=== PATIENT | female | born 1995 | race Caucasian/White ===

== ENCOUNTER 2020-07-11 14:58 | Emergency (ER) | payer OTHER ==
[2020-07-11] MEDS ORDERED: ACETAMINOPHEN 500 MG TAB PO ONE (15:04)
--- NOTE | 2020-07-11 15:07 | ED.PDOC ---
History of Present Illness - General Time Seen by Provider: 07/11/20 15:03 Source: patient - History of Present Illness Initial Comments: 24-year-old female who is brought in by law enforcement from senior living for chief complaint of left elbow pain following acute injury. She reports that she was running and she slipped and fell backwards and landed on the posterior aspect of the left elbow. Since then she reports sharp 10/10 severity pain which begins at the medial aspect of the posterior left elbow and radiates down the medial forearm, worsened with extension of the elbow and supination of the left forearm. She is unsure if there is any swelling or deformity. She has not been given any medicine for pain relief yet. Denies any weakness, numbness. No other acute injuries reported. Allergies/Adverse Reactions: Allergies Cefaclor [From [facility] [place]] Adverse Reaction (Verified 07/11/20 15:07) Home Medications: Ambulatory Orders NK 07/11/20 Review of Systems - Review of Systems Review of Systems: 07/11/20 15:06 as per HPI All other Systems: Reviewed and Negative Family Medical History - Family History Mother Family History: Unknown Physical Exam - Physical Exam General Appearance: Alert, Comfortable, No apparent distress Eyes, Ears, Nose, Throat Exam: PERRL/EOMI, normal ENT inspection Neck: full range of motion, normal inspection Cardiovascular/Respiratory: regular rate, rhythm, no M/R/G, normal peripheral pulses, no JVD, normal breath sounds, no respiratory distress Abdominal Exam: non-tender Back Exam: normal inspection Shoulder Exam: normal inspection Elbow/Forearm Exam: normal inspection - Left elbow appears normal on inspection without bruising/swelling/deformity. There is marked bony tenderness to palpation at the postero-medial aspect of the elbow. Wrist Exam: normal inspection, non-tender, no evidence of injury, normal ROM, limited ROM - Range of motion is markedly limited due to pain. Patient is holding the elbow slightly flexed Hand Exam: normal inspection, non-tender, no evidence of injury, normal ROM Neuro/Tendon: normal sensation, normal motor functions Mental Status: alert, oriented x 3 Skin Exam: normal color, warm/dry Progress - Progress Progress: 07/11/20 15:08 Left elbow pain -Consider left elbow fracture, left elbow dislocation, contusion, strain/sprain, other -X-ray imaging of the left elbow -Tylenol 1000 mg and cold compress to the left elbow for pain 07/11/20 16:59 -X-ray imaging of the left elbow reviewed by me and reveals comminuted fracture of the left radial neck -Consult orthopedic surgery, jay jay Guthrie who recommends sugar tong splint placement to the left upper extremity and follow-up outpatient with orthopedic surgery -Splint placed without issue. Discharged back to senior living in good condition, return warnings discussed. Advised to follow-up with orthopedic surgery in the next 3 to 5 days in the clinic Mark Steele MD Billing #[id number] Procedures - Splinting Left Arm Hand-Made Type: orthoglass Splint: sugar-tong Pre-Proc Neuro Vasc Exam: normal Post-Proc Neuro Vasc Exam: normal Departure - Departure Clinical Impression: Fracture of radial neck, left, closed Qualifiers: Encounter type: initial encounter Fracture alignment: displaced Qualified Code(s): S52.132A - Displaced fracture of neck of left radius, initial encounter for closed fracture Time of Disposition: 16:55 Disposition: Residential Condition: Good Instructions: Elbow Fracture (DC) Diet: resume usual diet Activity: other - no use or lifting with Left Upper extremity until cleared by ortho Referrals: ARLETH CM IV, NP [Active Staff] - 1-2 Weeks Abdoulaye Ford MD [Active Staff] - 1-5 Days Home Medications: Ambulatory Orders NK 07/11/20 Additional Instructions: The splint in place to the left arm until follow-up with orthopedic surgery. Avoid getting the splint wet which may cause it to lose its form and also cause irritation. Continue to take ibuprofen 600 mg every 6 hours as needed and Tylenol 650 mg every 6 hours as needed for pain and swelling. Return to the ED if you develop color change in the hand, weakness, numbness, or other concerning symptoms. Follow-up with orthopedic surgery in the next 3 to 5 days as directed. You will need to call the orthopedic surgery office tomorrow to arrange this appointment.
[2020-07-11 15:28] VITALS: TEMP 98.1
--- NOTE | 2020-07-11 15:46 | RAD ---
EXAM DESCRIPTION: Elbow,Left 3 Views CLINICAL HISTORY: fall, left elbow pain COMPARISON: None. IMPRESSION: 3 views of the left elbow show comminuted fracture involving the left radial head primarily involving the radial neck with mild extension to the lateral aspect of the radial head articular surface. Widening of the joint space is seen with lateral angulation of the proximal fracture fragment/radial head. Elevation of the anterior distal humerus fat pad is seen compatible with joint effusion and hemarthrosis. Electronically signed by: Jf Beltran MD 07/11/2020 3:44 PM CDT
[2020-07-11 16:21] VITALS: O2SAT 98
[2020-07-11 17:19] VITALS: BP 109/64
== END 2020-07-11 17:05 ==
LOC: ER 14:58
DX: S52.132A Displaced fracture of neck of left radius, initial encounter for closed fracture (principal); S52.122A Displaced fracture of head of left radius, initial encounter for closed fracture; W01.0XXA Fall on same level from slipping, tripping and stumbling without subsequent striking against object, initial encounter; Y93.02 Activity, running; Y92.148 Other place in prison as the place of occurrence of the external cause; Z88.8 Allergy status to other drugs, medicaments and biological substances